=== PATIENT | female | born 1995 | race American Indian/Alaskan Native ===

== ENCOUNTER 2020-11-12 09:00 | Emergency (ER) | payer BC ==
--- NOTE | 2020-11-12 10:24 | Emergency Department Report ---
Chief Complaint: Urogenital-Female Stated Complaint: LUMP IN BREAST Time Seen by Provider: 11/12/20 10:22 - HPI History of Present Illness: Patient is a 25-year-old -[place] female with no prior medical history who comes to the emergency room because she found a lump on her left breast. She has a great grandmother had breast cancer and she is concerned. She did not call her [employer] she just came to the emergency room. She has no other signs and symptoms. No fever or chills. No systemic signs and symptoms. No weight loss. - ROS Review of Systems: See HPI - Exam Vital Signs: Vital Signs 11/12/20 09:13 Temperature 98.4 F Pulse Rate 94 H Respiratory 20 Rate Blood Pressure 127/82 O2 Sat by Pulse 99 Oximetry Physical Exam: Alert and oriented x4. Well-developed well-nourished. [id number] nontoxic. Small multiple mobile masses under left axilla. No cellulitis. Patient has no history of polycystic breast disease. She has not had a mammogram. Last menstrual cycle was 5 1. Not concerned for . Patient states she does monthly breast exams and has never felt these before. [facility] [place]: Focused history and physical exam performed. Due to findings the following was ordered: Patient has been educated about mammograms. She understands that she needs when she thought she could get one in the ER. I have given him her a referral to Dr. Johnson and [employer] to evaluate and send her for imaging as needed. Patient verbalizes understanding. On discharge she is in no acute distress. Patient discussed with doctor:: [facility] ED Disposition for [facility] [place] Clinical Impression: Breast anomaly Disposition: Z- MED SCREENING EXAM-LEFT Is pt being admited?: No Does the pt Need Aspirin: No Condition: Stable Referrals: SHERLYN JOHNSON MD [Staff Physician] - 3-5 Days Time of Disposition: 10:24
== END 2020-11-12 10:29 | disposition left against medical advice (07) ==
LOC: ED 09:00